=== PATIENT | female | born 1995 | race Caucasian/White ===

== ENCOUNTER 2017-04-11 12:58 | Emergency (ER) | payer OTHER, SELFPAY ==
[2017-04-11] MEDS ORDERED: Ketorolac Tromethamine 60 MG/2 ML VIAL ONE (13:10)
--- NOTE | 2017-04-11 14:10 | RAD ---
TWO VIEWS CHEST: HISTORY: Neurocardiogenic syncope. Chest pain. COMPARISON: None. FINDINGS: Normal cardiac silhouette. Lungs and pleural spaces are clear. No pneumothorax or osseous abnormali ties. IMPRESSION: No acute cardiopulmonary process. POS: [facility]
--- NOTE | 2017-04-14 19:56 | EKG ---
Test Reason : Blood Pressure : / mmHG Vent. Rate : 100 BPM Atrial Rate : 100 BPM P-R Int : 132 ms QRS Dur : 068 ms QT Int : 326 ms P-R-T Axes : 039 004 -15 degrees QTc Int : 420 ms Normal sinus rhythm Nonspecific T wave abnormality Abnormal ECG Confirmed by AILYN VILLA ([id number]), manager editorial JUAN RODRÍGUEZ ([id number]) on 04/14/2017 7:55:20 PM Referred By: Confirmed By:AILYN VILLA
== END 2017-04-11 13:37 | disposition home or self-care (01) ==
LOC: SCSER 12:58
DX: R07.89 Other chest pain (principal); F41.9 Anxiety disorder, unspecified
CPT/HCPCS: 71046; 93005; 96372; J1885

== ENCOUNTER 2017-04-21 01:33 | Emergency (ER) | payer OTHER ==
[2017-04-21] MEDS ORDERED: Ketorolac Tromethamine 30 MG/ML VIAL ONE (03:26)
== END 2017-04-21 03:57 | disposition home or self-care (01) ==
LOC: ERS 01:33
DX: H66.92 Otitis media, unspecified, left ear (principal); J06.9 Acute upper respiratory infection, unspecified; F41.9 Anxiety disorder, unspecified
CPT/HCPCS: 96372; J1885

== ENCOUNTER 2017-06-29 08:07 | Outpatient (CLI) | payer OTHER ==
--- NOTE | 2017-06-29 10:13 | MRI ---
BRAIN AND PITUITARY GLAND MRI: HISTORY: Secondary adrenal insufficiency. Headache, worsening. COMPARISON: None. TECHNIQUE: Brain and pituitary gland MRI performed with and without intravenous Gadolinium administration. Mult isequential, multiplanar imaging is performed. FINDINGS: BRAIN MRI: No parenchymal hemorrhage. No extraaxial hematoma. No parenchymal mass, mass effect, or midline joi ft. Darrel volume is age appropriate. Cortical allen-white matter differentiation is preserved. Ventricles and sulci are patent and symmetric. Central arterial flow voids are maintained. Absent restricted diffusion. No significant T2 or FLAIR white matter hyperintensities. There is adequate aeration of the paranasal sinuses. There is asymmetric left mastoid air cell aerat ion. The calvarium is intact. Appropriate T1 marrow signal intensity. No pathologic enhancement of the brain parenchyma. On the T1 weighted images, there is appropriate signal intensity of the pituitary gland. Pituitary s talk is midline. No abnormal enhancement. No MR evidence of a microadenoma or macroadenoma. Optic chiasm is unremarkable. IMPRESSION: 1. Unremarkable MRI of the pituitary gland. 2. Unremarkable brain MRI. 3. Asymmetric opacification of the left mastoid air cells. POS: [facility]
== END 2017-06-29 08:08 | disposition home or self-care (01) ==
LOC: SCSMRI 08:07
DX: E27.49 Other adrenocortical insufficiency (principal); H74.8X2 Other specified disorders of left middle ear and mastoid
CPT/HCPCS: 70553

== ENCOUNTER 2017-08-13 14:32 | Outpatient (CLI) | payer OTHER | END 2017-08-13 14:33 | disposition home or self-care (01) | LOC: BICULT 14:32 | PROVIDERS: ATTEND Family Medicine | DX: R59.9 Enlarged lymph nodes, unspecified (principal) ==

== ENCOUNTER 2017-08-29 10:52 | Outpatient (CLI) | payer OTHER ==
[2017-08-29 12:05] LABS: #Basophils 0.1 thou/uL (0.0-0.2); #Eosinphils 0.1 thou/uL (0.0-0.7); #Lymphocytes 2.3 thou/uL (1.20-3.40); #Monocytes 0.7 thou/uL (0.11-0.59); #Neutrophils 7.5 thou/uL (1.40-6.50); %Basophils 0.8 % (0.0-1.0); %Eosinophils 1.1 % (0.0-10.0); %Lymphocytes 21.3 % (21.0-51.0); %Monocytes 6.4 % (0.0-10.0); %Neutrophils 70.4 % (42.0-75.0); Hemoglobin 13.4 g/dL (12.0-16.0); Mean Corpuscular HGB CONC 35.7 g/dL (32.0-36.0); Mean Corpuscular Hemoglobin 33.2 pg (27.0-31.0); Mean Platelet Volume 7.1 fL (7.4-10.4); Platelet Count 329 thou/uL (130-400); RBC Distribution Width 11.4 % (11.5-14.5); Red Blood Cell (RBC) Count 4.04 mill/uL (4.20-5.40); White Blood Cell (WBC) Count 10.7 thou/uL (4.8-10.8)
[2017-08-29 12:35] LABS: Anion Gap 9 mmol/L (10-20); BUN (Urea Nitrogen) 13 mg/dL (7.0-18.7); Calc. Creatinine Clearance 0 mL/min (70-130); Calcium 9.7 mg/dL (7.8-10.44); Carbon Dioxide 28 mmol/L (22-29); Chloride 105 mmol/L (98-107); Estimated GFR-MDRD Greater than 90; Glucose 100 mg/dL (70-105); Potassium 4.1 mmol/L (3.5-5.1); Sodium 138 mmol/L (136-145)
[2017-08-29 14:33] LABS: BHCG - Serum Negative (NEGATIVE); Pregs Control Background? CLEAR/WHITE (CLR/WHITE); Pregs Control Bar Appear? YES (CONTROL BAR)
== END 2017-08-29 10:53 | disposition home or self-care (01) ==
LOC: LABBT 10:52
PROVIDERS: ATTEND Surgery
DX: Z01.812 Encounter for preprocedural laboratory examination (principal); Q83.8 Other congenital malformations of breast
CPT/HCPCS: 80048; 84703; 85025

== ENCOUNTER 2017-08-31 06:33 | Day surgery (SDC) | payer OTHER ==
[2017-08-29 11:26] VITALS: BMI 34.7
[2017-08-31] MEDS ORDERED: Midazolam HCl 2 mg/2 ml Vial ONE ×2 (08:46→08:50)
[2017-08-31] MEDS ORDERED: Bupivacaine/Epinephrine 0.25% 30 ML VIAL ONE (08:47)
[2017-08-31] MEDS ORDERED: Fentanyl 100 MCG/2 ML VIAL ONE ×2 (08:50→10:27)
[2017-08-31] MEDS ORDERED: Ondansetron HCl/PF 4 MG/2 ML Vial ONE ×2 (08:57→10:46)
[2017-08-31] MEDS ORDERED: Ondansetron HCl/PF 4 MG/2 ML Vial IVP PRN (10:36)
[2017-08-31] MEDS ORDERED: Non-Formulary Medication 1 EACH PO PRN (10:36)
[2017-08-31] MEDS ORDERED: Promethazine HCl 25 MG/ML VIAL IM/IV PRN (10:36)
[2017-08-31] MEDS ORDERED: Promethazine HCl 25 MG/ML VIAL ONE (10:38)
[2017-08-31] MEDS ORDERED: Succinylcholine Chloride 20 MG/ML 10 ml SYRINGE FS ONE (15:50)
[2017-08-31] MEDS ORDERED: Lidocaine 1% PF 5 ML VIAL ONE (15:50)
[2017-08-31] MEDS ORDERED: PROPOFOL 200 MG/20 ML VIAL ONE (15:50)
[2017-08-31] MEDS ORDERED: Hydrocortisone Sod Succ/PF 100 mg/2 ml Vial ONE (15:50)
--- NOTE | 2017-08-31 19:37 | PDOC.OP ---
Operative Note - Operative Note Operative Note: PROCEDURE: Excision of ectopic breast tissue right axilla DATE OF PROCEDURE: 08/31/2017 SURGEON: Ji Nazario M.D. PREOPERATIVE DIAGNOSES: Ectopic right axillary breast tissue POSTOPERATIVE DIAGNOSIS: Ectopic right axillary breast tissue HISTORY: Patient with tender and enlarging subcutaneous mass in her right axilla consistent with ectopic breast tissue on examination and ultrasound. She has decided to proceed with excision for symptomatic purposes. PROCEDURE IN DETAIL: After informed consent was obtained the patient was taken to the operating she was placed in supine position and general anesthesia was administered. She was prepped and draped in a standard sterile fashion and local anesthesia was infused the skin and subcutaneous tissue surrounding the ectopic breast tissue. An elliptical incision was made to include some of the redundant skin overlying the mass and dissection was carried down circumferentially to the edges of the palpable ectopic tissue. The tissue was resected off of the underlying subcutaneous tissues staying superficial to the true axilla. The specimen was marked with a long lateral and short superior suture and passed from the field. On palpation there was some firm feeling tissue superiorly still remaining and this was excised and sent with the specimen. The remainder of the remaining axillary tissue felt like normal soft subcutaneous fat. The wound was irrigated and hemostasis verified. Hemostasis was maintained throughout the case using electrocautery as necessary. The deep subcutaneous tissues were reapproximated with interrupted 3-0 Monocryl sutures. The skin was closed with a running 4-0 subcuticular Monocryl suture and Dermabond dressing were placed. Once this was dry a fluffs pressure dressing was placed and the patient was extubated and taken to recovery in good condition. Estimated blood loss is minimal. There were no complications. Specimen is ectopic breast tissue from right axilla
== END 2017-08-31 12:10 | disposition home or self-care (01) ==
LOC: SDC 06:33
PROVIDERS: ATTEND Surgery
PROC: 0HB Skin and Breast, Excision (ICD-10-PCS; principal; 2017-08-31)
DX: Q83.8 Other congenital malformations of breast (principal); E27.49 Other adrenocortical insufficiency; Z91.040 Latex allergy status; Z79.52 Long term (current) use of systemic steroids; Z79.899 Other long term (current) drug therapy
CPT/HCPCS: 88305; 96374; 96375; J1720; J2001; J2250; J2405; J2550; J2704; J3010

== ENCOUNTER 2017-10-19 07:46 | Outpatient (CLI) | payer OTHER ==
--- NOTE | 2017-10-19 09:50 | MRI ---
MRI OF THE RIGHT KNEE: DATE: 10/19/17. PROVIDED CLINICAL HISTORY: Right knee pop. FINDINGS: The anterior cruciate ligament, posterior cruciate ligament, medial collateral ligament, and lateral collateral ligamentous complex demonstrates an intact MR appearance. There is somewhat more conspicu ous than usual signal alteration in a heterogeneous manner involving the distal quadriceps tendon wit hout true fluid signal intensity suggesting tendinosis. 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 There is a thi ckened and broadened appearance to the iliotibial band, the anterior aspects of which are confluent w ith a thickened lateral patellar retinaculum which then inserts in a broad manner upon the posterolat eral aspect of the patella inferiorly. A portion of the iliotibial band also becomes confluent with the patellar tendon separate from this region at about its mid portion between the inferior pole of t he patella and the tibial tubercle. The medial and lateral menisci demonstrate no evidence for tear. No focal articular cartilage defect is apparent. The amount of fluid within the knee joint appears physiologic. No focal concerning regional marrow or muscular signal abnormality is apparent. IMPRESSION: 1. No evidence for internal derangement. 2. 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 POS: [facility]
== END 2017-10-19 07:47 | disposition home or self-care (01) ==
LOC: TBSIIMAG 07:46
PROVIDERS: ATTEND Orthopaedic Surgery
DX: S83.281A Other tear of lateral meniscus, current injury, right knee, initial encounter (principal)